=== PATIENT | female | born 1965 | race Caucasian/White ===

== ENCOUNTER → 2018-08-02 | Day surgery (SDC) | payer OTHER ==
[~2018-08-02] MED LIST: ATORVASTATIN CA10 MG PO; FARXIGA; FENTANYL CITRATE/PF 100MCG/2 ML INJ ONE; HYOSCYAMINE SULFATE 0.5 MG/ML INJ ONE; LEVOTHYROXINE50 MCG PO; METFORMIN HCL500 MG PO; MIDAZOLAM HCL 2 MG/2 ML VIAL ONE; OMEPRAZOLE40 MG PO; PROPOFOL IV EMULSION 10 MG/ML 20 ML VIAL ONE; PROPOFOL IV EMULSION 10 MG/ML 50 ML VIAL ONE; SERTRALINE HCL100 MG PO; TYLENOL WITH C1 EACH PO; ZOFRAN4 MG PO
--- OUTSIDE RECORDS SUMMARY | 2018-08-02 07:07 | XMS REPORT | Clinical Summary ---
Author Author [facility] Organization [place] [facility] Address Unknown Phone Unavailable Care Team Providers Care Surgeon Assistant Name Role Phone System, Provider Not In MD PCP Unavailable Allergies Comments Active Allergy Reactions Severity Noted Date Syncope Amoxicillin Rash, Other High 04/08/2017 (See Comments) Medications End Date Status Medication Sig Dispensed Refills Start Date Active metFORMIN (GLUCOPHAGE) Take 500 mg 0 500 mg tablet by mouth 2 (two) times a day with meals. Active Problems Problem Noted Date Unstable angina 05/10/2018 Encounters Care Team Description Date Type Specialty Jabier Catherine MD Roberts, Matthew Thomas, Unstable angina (HCC) (Primary Dx) 05/10/2018 Emergency Emergency Medicine N/A 05/10/2018 Intake Access 05/10/2018 Travel Dino Capone MD Marcantel, Derek L, MD Hypertension, unspecified type (Primary Dx) 04/25/2018 Emergency Emergency Medicine after 08/01/2017 Social History Date Tobacco Use Types Packs/Day Years Used Current Every Day Smoker Cigarettes 1 Smokeless Tobacco: Never Used Alcohol Use Drinks/Week oz/Week Comments No Sex Assigned at Date Recorded Not on file Industry Job Start Date Occupation Not on file Not on file Not on file Travel End Travel History Travel Start No recent travel history available. Last Filed Vital Signs Time Taken Vital Sign Reading 05/10/2018 4:45 PM [facility] Blood Pressure 128/72 05/10/2018 4:45 PM [employer] [facility] Pulse 106 05/10/2018 2:50 PM [employer] [facility] Temperature 36.9 C (98.4 F) 05/10/2018 4:45 PM [employer] [facility] Respiratory Rate 18 05/10/2018 4:45 PM [employer] [facility] Oxygen Saturation 96% - Inhaled Oxygen - Concentration 05/10/2018 2:40 PM [employer] [facility] Weight 99.8 kg (220 lb) 05/10/2018 2:40 PM [employer] [facility] Height 162.6 cm (5' 4") 05/10/2018 2:40 PM [employer] [facility] Body Mass Index 37.76 Plan of Treatment Health Maintenance Due Date Last Done Comments CERVICAL CANCER SCREENING 11/26/1988 BREAST CANCER SCREENING 11/26/2017 COLON CANCER SCREENING 11/26/2017 SHINGLES VACCINES (#1) 11/26/2017 INFLUENZA VACCINE 10/25/2018 Procedures Comments Procedure Name Priority Date/Time Associated Diagnosis CT ABDOMEN PELVIS W STAT 05/10/2018 CONTRAST 4:45 PM [employer] [facility] URINALYSIS SCREEN AND STAT 05/10/2018 MICROSCOPY, WITH REFLEX 3:44 PM [employer] [facility] TO CULTURE URINE CULTURE STAT 05/10/2018 3:44 PM [employer] [facility] XR CHEST 1 VW PORTABLE STAT 05/10/2018 3:34 PM [employer] SE[facility]ER ECG ED PRELIMINARY Routine 05/10/2018 INTERPRETATION 3:32 PM [employer] LIPASE LEVEL Routine 05/10/2018 3:13 PM [employer] [facility] LACTIC ACID LEVEL, SEPSIS STAT 05/10/2018 - NOW AND REPEAT 2X EVERY 3:13 PM [employer] [facility] 3 HOURS ESTIMATED GFR Routine 05/10/2018 3:13 PM [employer]INT SE[employer]ER B NATRIURETIC PEPTIDE Routine 05/10/2018 3:13 PM [employer] [facility] TROPONIN Routine 05/10/2018 3:13 PM [employer] [facility] COMPREHENSIVE METABOLIC Routine 05/10/2018 PANEL 3:13 PM [employer] [facility] PROTHROMBIN TIME WITH INR Routine 05/10/2018 3:13 PM [employer] HC COMPLETE BLD COUNT Routine 05/10/2018 W/AUTO DIFF 3:13 PM [employer] [facility] ECG 12-LEAD STAT 05/10/2018 2:43 PM JOINT SEALER ECG 12-LEAD STAT 04/25/2018 8:15 PM JO[employer] SEALER after 08/01/2017 Results * CT Abdomen Pelvis W Contrast (05/10/2018 4:45 PM JOINT SEALER) Narrative Performed At EXAMINATION:CT ABDOMEN PELVIS W CONTRAST [facility] CLINICAL HISTORY:Abd distension TECHNIQUE: Multiple axial images of the abdomen and pelvis were obtained following intravenous administration of iodinated contrast. Sagittal and coronal computerized reformatted images were also obtained. CT imaging was performed with iterative reconstruction techniques and/or automated exposure control to reduce radiation dose. COMPARISON:None. FINDINGS: 1.The liver, spleen, pancreas, gallbladder, and adrenals are normal. 2.Tiny cortical hypodensities in the lower pole the right kidney, subcentimeter, are probably cysts but difficult to characterize due to small size. Otherwise the kidneys, ureters and urinary bladder are normal. 3.No small or large bowel obstruction or inflammation is seen.The stomach and appendix are within normal limits. 4.A surgical mesh in the anterior abdominal wall is present. There is no abdominal wall hernia. 5.Uterus is absent. 6.No ascites or lymphadenopathy is seen. 7.No vascular abnormality is seen. 8.There is no significant skeletal finding. IMPRESSION: No acute abnormality. [id number] Procedure Note Interface, Radiology Results Incoming - 05/10/2018 4:52 PM JOINT SEALER EXAMINATION: CT ABDOMEN PELVIS W CONTRAST CLINICAL HISTORY: Abd distension TECHNIQUE: Multiple axial images of the abdomen and pelvis were obtained following intravenous administration of iodinated contrast. Sagittal and coronal computerized reformatted images were also obtained. CT imaging was performed with iterative reconstruction techniques and/or automated exposure control to reduce radiation dose. COMPARISON: None. FINDINGS: 1. The liver, spleen, pancreas, gallbladder, and adrenals are normal. 2. Tiny cortical hypodensities in the lower pole the right kidney, subcentimeter, are probably cysts but difficult to characterize due to small size. Otherwise the kidneys, ureters and urinary bladder are normal. 3. No small or large bowel obstruction or inflammation is seen. The stomach and appendix are within normal limits. 4. A surgical mesh in the anterior abdominal wall is present. There is no abdominal wall hernia. 5. Uterus is absent. 6. No ascites or lymphadenopathy is seen. 7. No vascular abnormality is seen. 8. There is no significant skeletal finding. IMPRESSION: No acute abnormality. [id number] Performing Organization Address City/State/Zipcode Phone Number [facility] [address] [place] [address] * Urinalysis screen and microscopy, with reflex to culture (05/10/2018 3:44 PM JOINT SEALER) Specimen site Clean catch [facility] Color, UA Yellow [facility] Appearance, UA Clear [facility] Specific gravity, UA 1.015 1.001 - 1.035 [facility] pH, UA 6.0 5.0 - 8.5 [facility] Protein, UA Negative Negative [facility] Glucose, UA Negative Negative [facility] Ketones, UA Negative Negative [facility] Bilirubin, UA Negative Negative [facility] Blood, UA Negative Negative [facility] Nitrite, UA Negative Negative [facility] Urobilinogen, UA Negative <2.0 [facility] Leukocyte esterase, UA Negative Negative [facility] Epithelial cells, UA Moderate /HPF [facility] WBC, UA 1 0 - 5 /HPF [facility] RBC, UA 1 0 - 5 /HPF [facility] Bacteria, UA None seen None seen [facility] Yeast, UA None seen [facility] Yeast with pseudohyphae, None seen [facility] Specimen Urine Performing Organization Address City/[facility]/Zipcode Phone Number [facility] DEPARTMENT OF [address] [place] [address] PATHOLOGY AND GENOMIC MEDICINE [address] * Urine culture (05/10/2018 3:44 PM JOINT SEALER) Urine culture SEE COMMENTComment: [facility] Bacteriuria screen negative. [facility] Specimen Urine Performing Organization Address City/[facility] Phone Number [facility] DEPARTMENT OF [address] [place] [address] [place] [address] PATHOLOGY AND GENOMIC MEDICINE [address] * XR Chest 1 Vw Portable (05/10/2018 3:34 PM JOINT SEALER) Narrative Performed At SINGLE VIEW CHEST, 05/10/2018 [facility] Clinical History: Chest pain. Technique: Single, portable AP view chest. Comparison: April 08, 2017. Impression: 1.Clear lungs. 2.No pleural effusions. 3.Normal heart size and mediastinal contours for technique. 4.Normal central vasculature. 5.Intact skeleton. 6.No interval change from April 08, 2017. Procedure Note Hm Interface, Radiology Results Incoming - 05/10/2018 3:38 PM JOINT SEALER SINGLE VIEW CHEST, 05/10/2018 Clinical History: Chest pain. Technique: Single, portable AP view chest. Comparison: April 08, 2017. Impression: 1. Clear lungs. 2. No pleural effusions. 3. Normal heart size and mediastinal contours for technique. 4. Normal central vasculature. 5. Intact skeleton. 6. No interval change from April 08, 2017. Performing Organization Address City/[facility]/Zipcode Phone Number [facility] [address] [place] [address] * ECG ED Preliminary Interpretation - Not an Order (05/10/2018 3:32 PM JOINT SEALER) Narrative Performed At Jabier Catherine MD 05/10/20184:55 PM ECG ED Preliminary Interpretation - Not an Order Performed by: Jabier Catherine MD Authorized by: Jabier Catherine MD ECG reviewed by ED Physician in the absence of a medical engineer: yes Previous ECG: Previous ECG:Compared to current Interpretation: Interpretation: normal Rate: ECG rate:107 ECG rate assessment: tachycardic Rhythm: Rhythm: sinus tachycardia Ectopy: Ectopy: none QRS: QRS axis:Normal Conduction: Conduction: normal ST segments: ST segments:Normal T waves: T waves: normal * Estimated GFR (05/10/2018 3:13 PM JOINT SEALER) Estimated GFR 65 mL/min/1.73 m2 [place] [facility] Comment: [facility] CatergoryUnitsInte rpretation G1 >=90 Normal or high G2 60-89Mildly decreased [id number] Mildly to moderately decreased V3f69-37 Moderately to severely decreased G4 15-29Severely decreased G5 <15Kidney failure The eGFR was calculated using the Chronic Kidney Disease Epidemiology Collaboration (CKD-EPI) equation. Interpretation is based on recommendations of the National Kidney Foundation-Kidney Disease Outcomes Quality Initiative (NKF-KDOQI) published in 2014. Specimen Plasma specimen Performing Organization Address City/State/Zipcode Phone Number [facility] DEPARTMENT OF [address] [place] [phone] PATHOLOGY AND GENOMIC MEDICINE [address] * Lactic acid level, SEPSIS - Now and repeat 2x every 3 hours (05/10/2018 3:13 PM JOINT SEALER) Lactic acid 1.3 0.5 - 2.2 mmol/L [facility] Specimen Blood Performing Organization Address City/[facility]/[place] [address] PATHOLOGY AND GENOMIC MEDICINE [address] * Troponin (05/10/2018 3:13 PM JOINT SEALER) Troponin <0.30 0.00 - 0.30 ng/mL [facility] Comment: [facility] 0.11 - 1.49 ng/mlMay indicate increased risk of acute coronary syndrome. >=1.5 ng/ml Consistent with acute myocardial infarction. The diagnostic value of a single normal or non-diagnostic result is questionable.Serial samples at 2-6 hour intervals are required to rule out acute myocardial injury. Specimen Plasma specimen Performing Organization Address [facility] [place] [address] PATHOLOGY AND [facility] MEDICINE [address] * Prothrombin time with INR (05/10/2018 3:13 PM JOINT SEALER) Prothrombin time 13.0 11.5 - 14.5 sec [facility] INR 1.[address] [facility] Comment: [facility] For patients on anticoagulant therapy, reference ranges below: Indication: INR Value Treatment of Venous Thrombosis, 2.0-3.0 pulmonary emboli, or prophylaxis of a venous thrombosis, or systemic emboli. High dose, high risk patients 3.0-4.5 with mechanical valves. NOTE:INR values over 3.0 are sometimes associated with gastrointestinal hemorrhage, especially values over 4.0. Specimen Blood Performing Organization Address City/[facility]/Zipcode Phone Number [facility] DEPARTMENT [place] [phone] PATHOLOGY AND GENOMIC MEDICINE [facility] [address] * CBC with platelet and differential (05/10/2018 3:13 PM JOINT SEALER) WBC 10.2 4.2 - 11.0 k/uL [facility] RBC 4.57 4.04 - 5.86 m/uL [facility] HGB 14.0 11.5 - 15.3 g/dL [facility] HCT 42.9 34.0 - 45.0 % [facility] MCV 93.9 80.0 - 98.0 fL [facility] MCH 30.6 27.0 - 34.0 pg [facility] MCHC 32.6 31.5 - 36.5 g/dL [facility] RDW - SD 43.4 37.0 - 51.0 fL [facility] MPV 10.1 7.4 - 10.4 fL [facility] Platelet count 266 150 - 400 k/uL [facility] Nucleated RBC 0.00 /100 WBC [facility] Neutrophils 48.6 36.0 - 66.0 % [facility] Lymphocytes 37.6 24.0 - 44.0 % [facility] Monocytes 5.9 0.0 - 6.0 % [facility] Eosinophils 6.9 (H) 0.0 - 6.0 % [facility] Basophils 0.7 0.0 - 1.2 % [facility] Immature granulocytes 0.3 0.0 - 1.0 % [facility] Specimen Blood Performing Organization Address City/State/Zipcode Phone Number [facility] DEPARTMENT [facility] [place] [phone] PATHOLOGY AND GENOMIC MEDICINE [facility] [place] [address] * B natriuretic peptide (05/10/2018 3:13 PM JOINT SEALER) BNP 4 0 - 100 pg/mL [facility] Specimen Blood Performing Organization Address [facility] Phone Number [facility] DEPARTMENT OF [address] [place] [address] PATHOLOGY AND GENOMIC MEDICINE [place] [address] * Lipase level (05/10/2018 3:13 PM JOINT SEALER) Lipase 29 13 - 60 U/L [facility] Specimen Plasma specimen Performing Organization Address [facility] Phone Number [facility] DEPARTMENT OF [address] [facility] [place] [phone] PATHOLOGY AND GENOMIC MEDICINE [address] * Comprehensive metabolic panel (05/10/2018 3:13 PM JOINT SEALER) Sodium 142 135 - 150 mEq/L [facility] Potassium 4.1 3.5 - 5.0 mEq/L [facility] Chloride 103 98 - 112 mEq/L [facility] CO2 29 24 - 31 mmol/L [facility] Anion gap 10@ANIO 7 - 15 mEq/L [facility] BUN 14 7 - 18 mg/dL [facility] Creatinine 1.00 (H) 0.50 - 0.90 mg/dL [facility] Glucose 111 (H) 65 - 100 mg/dL [facility] Calcium 9.4 8.3 - 10.2 mg/dL [facility] Protein 6.4 6.3 - 8.3 g/dL [facility] Albumin 3.1 (L) 3.5 - 5.0 g/dL [facility] A/G ratio 0.9 0.7 - 3.8 [facility] Alkaline phosphatase 81 0 - 104 U/L [facility] AST 10 10 - 35 U/L [facility] ALT 11 5 - 50 U/L [facility] Total bilirubin 0.3 0.2 - 1.2 mg/dL [facility] Specimen Plasma specimen Performing Organization Address City/State/Zipcode Phone Number [facility] DEPARTMENT OF [address] [place] [address] PATHOLOGY AND GENOMIC MEDICINE [place]MORE [address] [place] [address] [facility] * ECG 12 lead (05/10/2018 2:43 PM JOINT SEALER) Only the most recent of 2 results within the time period is included. Ventricular rate 107 [facility] Atrial rate 107 [facility] CO interval 158 [facility] QRSD interval 82 [facility] QT interval 344 [facility] QTC interval 459 [facility] P axis 1 45 [facility] QRS axis 1 -19 [facility] T wave axis 53 [facility] EKG impression Sinus tachycardia-Low voltage [facility] QRS-Cannot rule out Anterior infarct (cited on or before 08-APR-2017)-Abnormal ECG-In automated comparison with ECG of 25-APR-2018 20:15,-No significant change was found- Narrative Performed At Performing Organization Address City/State/Zipcode Phone Number [facility] [address] [place] [address] after 08/01/2017 Insurance Payer Benefit Subscriber ID Type Phone Address Plan / Group [facility] MEDICAID [facility] xxxxxxxxx HMO COMM STAR+ JOSE Advance Directives Patient has advance care planning documents on file. For more information, yolie e contact: Sal Velarde [address] [place] [address]
--- OUTSIDE RECORDS SUMMARY | 2018-08-02 07:07 | XMS REPORT ---
Author Author Admin, [place] Organization [facility] Address Unknown Phone Unavailable Allergies, Adverse Reactions, Alerts Allergy Name Reaction Description Start Date Severity Status Provider No Known Allergies Geetha Olmos AMOXICILLIN Pt breaks out in hives Mild Active Cony Escalona MD Conditions or Problems Problem Name Problem Code Onset Date Status Entry Date Provider Comment Standard Description Annotate Dizziness / vertigo 780.4 Active Cony Escalona MD Dizziness and giddiness Colon cancer screening V76.51 Active Cony Escalona MD Screening for malignant neoplasms of colon Diabetes mellitus, type II 250.00 Active Cony Escalona MD Diabetes mellitus without mention of complication, type II or unspecified type, not stated as uncontrolled GERD - reflux, esophageal 530.81 Active Cony Escalona MD Esophageal reflux Hyperlipidemia 272.4 Active Cony Escalona MD Other and unspecified hyperlipidemia Hypertension 401.9 Active Cony Escalona MD Unspecified essential hypertension Hypothyroidism 244.9 Active Cony Escalona MD Unspecified hypothyroidism Knee pain, bilateral 719.46 Active Cony Escalona MD Pain in joint involving lower leg On examination - poor dental hygiene V69.8 Active Cony Escalona MD Other problems related to lifestyle Screening exam for breast cancer V76.10 Active Cony Escalona MD Breast screening, unspecified Medication List Medication Instructions Start Date Stop Date Generic Name NDC Status Provider Patient Instruction MECLIZINE HCL 25 MG ORAL TABLET 1 by mouth 3 times a day as needed MECLIZINE HCL 02045544486 Active Cony Escalona MD Active NAPROXEN 500 MG ORAL TABLET 1 by mouth twice a day as needed for pain and inflammation NAPROXEN 81906846896 Active Cony Escalona MD Active LEVOTHYROXINE SODIUM 175 MCG ORAL TABLET One tab by mouth daily LEVOTHYROXINE SODIUM 63646574628 Active Cathi Garcia CPHT Active LISINOPRIL 10 MG ORAL TABLET 1 by mouth every day LISINOPRIL 03679200149 Active Cony Escalona MD Active METFORMIN HCL 500 MG ORAL TABLET 1 by mouth Twice a Day METFORMIN HCL 70364392600 Active Cathi Garcia CPHT Active PRAVASTATIN SODIUM 40 MG ORAL TABLET 1 By Mouth once a day PRAVASTATIN SODIUM 37189427850 Active Cony Escalona MD Active PROTONIX 40 MG ORAL TABLET DELAYED RELEASE 1 by mouth daily PANTOPRAZOLE SODIUM 82488106179 Active Cony Escalona MD Active ZOLOFT 100 MG ORAL TABLET 1 by mouth nightly at bedtime SERTRALINE HCL 23613762693 Active Cony Escalona MD Active Vital Signs Date Name Value Unit Range Description blood pressure, diastolic 74 mm[Hg] BP winter blood pressure, systolic 121 mm[Hg] BP sys pulse rate E&M 97 /min Heart rate blood pressure, diastolic 77 mm[Hg] BP winter blood pressure, systolic 110 mm[Hg] BP sys pulse rate E&M 76 /min Heart rate blood pressure, diastolic, second observation 75 mm[Hg] BP winter blood pressure, diastolic, third observation 73 mm[Hg] BP winter blood pressure, diastolic, fourth observation 74 mm[Hg] BP winter blood pressure, diastolic 83 mm[Hg] BP winter blood pressure, systolic, second observation 109 mm[Hg] BP sys blood pressure, systolic, third observation 111 mm[Hg] BP sys blood pressure, systolic, fourth observation 114 mm[Hg] BP sys blood pressure, systolic 131 mm[Hg] BP sys height E&M 64 [in_us] Bdy height pulse rate E&M 104 /min Heart rate pulse rate #2 86 Heart rate pulse rate #3 86 Heart rate pulse rate #4 87 /min Heart rate respiratory rate E&M 23 /min Resp rate temperature E&M 98.6 [degF] Body temperature weight E&M 231.40 [lb_av] Weight Measured blood pressure, diastolic 80 mm[Hg] BP winter blood pressure, systolic 135 mm[Hg] BP sys height E&M 64 [in_us] Bdy height pulse rate E&M 101 /min Heart rate respiratory rate E&M 17 /min Resp rate temperature E&M 98.5 [degF] Body temperature weight E&M 230 [lb_av] Weight Measured Diagnostic Results Date Name Value Unit Range Description Lab Report: TSH+Free T4, CBC With Differential/Platelet, Comp. Metabolic ... - Hematology basophils as percent of blood leukocytes 1 % Not Estab. Lab Report: TSH+Free T4, CBC With Differential/Platelet, Comp. Metabolic ... - Chemistry calcium, serum 9.5 mg/dL 8.7-10.2 Lab Report: TSH+Free T4, CBC With Differential/Platelet, Comp. Metabolic ... - Hematology lymphocyte count, blood, automated 3.9 X10E3/UL 10*3/mm3 0.7-3.1 Lab Report: TSH+Free T4, CBC With Differential/Platelet, Comp. Metabolic ... - Chemistry thyroxine, serum, free 0.70 ng/dL 0.82-1.77 urea nitrogen, blood 15 mg/dL 6-24 Lab Report: TSH+Free T4, CBC With Differential/Platelet, Comp. Metabolic ... - Hematology monocyte count, blood, automated 0.6 X10E3/UL 10*3/uL 0.1-0.9 Lab Report: TSH+Free T4, CBC With Differential/Platelet, Comp. Metabolic ... - Chemistry urea nitrogen/creatinine ratio, serum 20 9-23 immature granulocytes, percentage of total cells, blood 0 % Not Estab. Lab Report: TSH+Free T4, CBC With Differential/Platelet, Comp. Metabolic ... - Genetics/fertility eGFR if 110 mL/min/1.73m2 >59 Lab Report: TSH+Free T4, CBC With Differential/Platelet, Comp. Metabolic ... - Chemistry creatinine, serum 0.74 mg/dL 0.57-1.00 Lab Report: TSH+Free T4, CBC With Differential/Platelet, Comp. Metabolic ... - Hematology mean corpuscular volume, RBC 92 fL 79-97 Lab Report: TSH+Free T4, CBC With Differential/Platelet, Comp. Metabolic ... - Chemistry chloride, serum 100 mmol/L 96-106 Lab Report: TSH+Free T4, CBC With Differential/Platelet, Comp. Metabolic ... - Hematology lymphocytes as percent of blood leukocytes 38 % Not Estab. Lab Report: TSH+Free T4, CBC With Differential/Platelet, Comp. Metabolic ... - Chemistry triglyceride, serum, fasting 438 mg/dL 0-149 Lab Report: TSH+Free T4, CBC With Differential/Platelet, Comp. Metabolic ... - Hematology erythrocyte (RBC) count 4.90 X10E6/UL 10*6/mm3 3.77-5.28 Lab Report: TSH+Free T4, CBC With Differential/Platelet, Comp. Metabolic ... - Chemistry Estimated Glomerular Filtration Rate (calc) 95 mL/min/1.73m2 >59 Lab Report: TSH+Free T4, CBC With Differential/Platelet, Comp. Metabolic ... - Hematology platelet count 269 X10E3/UL 10*3/mm3 190-038 3580/03/21 red blood cell distribution width 13.2 % 12.3-15.4 Lab Report: TSH+Free T4, CBC With Differential/Platelet, Comp. Metabolic ... - Chemistry carbon dioxide, venous blood 26 mmol/L 18-29 protein, total, serum 7.2 g/dL 6.0-8.5 HDL cholesterol, serum 34 mg/dL >39 sodium, serum 143 mmol/L 996-350 5037/03/21 hemoglobin A1C, blood, as % of total hemoglobin 6.7 % 4.8-5.6 Lab Report: TSH+Free T4, CBC With Differential/Platelet, Comp. Metabolic ... - Hematology eosinophils as percent of blood leukocytes 10 % Not Estab. Lab Report: TSH+Free T4, CBC With Differential/Platelet, Comp. Metabolic ... - Chemistry albumin/globulin ratio, serum 1.5 1.2-2.2 Absolute Neutrophils 4.8 X10E3/UL 10*3/uL 1.4-7.0 alkaline phosphatase, serum 107 U/L 39-117 Lab Report: TSH+Free T4, CBC With Differential/Platelet, Comp. Metabolic ... - Hematology basophil count, absolute 0.1 x10E3/uL 0.0-0.2 Lab Report: TSH+Free T4, CBC With Differential/Platelet, Comp. Metabolic ... - Chemistry alanine aminotransferase (SGPT), serum 14 U/L 0-32 Lab Report: TSH+Free T4, CBC With Differential/Platelet, Comp. Metabolic ... - Hematology Eosinophil Absolute Count 1.0 X10E3/UL 10*3/uL 0.0-0.4 Lab Report: TSH+Free T4, CBC With Differential/Platelet, Comp. Metabolic ... - Chemistry LDL cholesterol, serum TRIGHI mg/dL mg/dL 0-99 Lab Report: TSH+Free T4, CBC With Differential/Platelet, Comp. Metabolic ... - Hematology monocytes as percent of blood leukocytes 5 % Not Estab. mean corpuscular hemoglobin, RBC 31.2 pg 26.6-33.0 Lab Report: TSH+Free T4, CBC With Differential/Platelet, Comp. Metabolic ... - Chemistry cholesterol, serum 244 mg/dL 100-199 Lab Report: TSH+Free T4, CBC With Differential/Platelet, Comp. Metabolic ... - Hematology mean corpuscular hemoglobin concentration, RBC 33.9 G/DL % 31.5-35.7 Lab Report: TSH+Free T4, CBC With Differential/Platelet, Comp. Metabolic ... - Chemistry bilirubin, serum, total 0.4 mg/dL 0.0-1.2 Lab Report: TSH+Free T4, CBC With Differential/Platelet, Comp. Metabolic ... - Hematology hemoglobin, blood 15.3 g/dL 11.1-15.9 neutrophils as percent of blood leukocytes 46 % Not Estab. leukocyte count, blood 10.3 X10E3/UL 10*3/mm3 3.4-10.8 hematocrit, blood 45.1 % 34.0-46.6 Lab Report: TSH+Free T4, CBC With Differential/Platelet, Comp. Metabolic ... - Chemistry potassium, serum 4.5 mmol/L 3.5-5.2 blood glucose, random 99 mg/dL 65-99 globulin, serum 2.9 1.5-4.5 aspartate aminotransferase (SGOT), serum 14 U/L 0-40 thyroid stimulating hormone, serum 40.090 u[iU]/mL 0.450-4.500 albumin, serum 4.3 g/dL 3.5-5.5 very low density lipoproteins VLDLCH mg/dL mg/dL 5-40 Encounters Date Encounter Provider Code Facility 21:07:27 CDT Est Patient Detailed - [id number] Cony Escalona MD CPT-60524 [facility] 09:52:53 CDT New Patient Detailed - 93473 Cony Escalona MD CPT-26788 [facility]
--- OUTSIDE RECORDS SUMMARY | 2018-08-02 07:07 | XMS REPORT ---
Author [facility] Address Unknown Phone Unavailable Care Team Providers Care Assistant Film Editor Name Role Phone Unavailable Unavailable Payers Payer Name Policy Type Policy Number Effective Date Expiration Date Problems This patient has no known problems. Allergies, Adverse Reactions, Alerts Allergy Name Allergy Type Status Severity Reaction(s) Onset Date Inactive Date Treating Clinician Comments mesalamine DA Active MO 2018-05-10 00:00:00 aspirin DA Active U 2018-05-10 00:00:00 Penicillins DA Active U 2018-04-28 00:00:00 amoxicillin DA Active U 2018-04-28 00:00:00 tramadol DA Active MA 2017-02-19 00:00:00 Medications This patient has no known medications. Results Test Description Test Time Test Comments Text Results Atomic Results Result Comments - XR CHEST 2 V 2018-05-11 11:39:00 FAX: Ina Maciel MD [phone] [place]: St: ADM Name: JANE LINDQUIST [facility] : 1965 Age/S: 52/F [address] [facility] Unit #: [id number] Loc: V.[address] [place] [id number] Phys: Ina Figueroa MD Acct: [id number] Dis Date: Status: ADM IN PHONE #: [phone] Exam Date: 05/11/2018 1118 FAX #: [phone] Reason: chest pain EXAMS: CPT CODE: [id number] XR CHEST 2 V 74058 HISTORY: Chest pain. COMPARISON: None available. AP and lateral view of the chest: No acute infiltrates, effusion or conge stion. Mild scarring. Dependent changes. Cardiac silhouette is at the upper limits of normal. IMPRESSION: No acute infiltrates, effusion or congestion. at 1137 Reported and signed by: Kendrick Kennedy M.D. CC: Ina Figueroa MD Technologist: ANDRES SALCEDO RT (R) Trnscrd Date/Time/By: 05/11/2018 (7541) : By: [email or web address] Orig Print D/T: S: 05/11/2018 (7727) PAGE 1 Signed Report CBC W/MANUAL DIFF 2018-05-11 08:55:00 WHITE BLOOD CELL (test code=WBC) 11.6 K/mm3 4.5-12.5 RED BLOOD CELL (test code=RBC) 4.54 mill/mm3 3.7-5.2 HEMOGLOBIN (test code=HGB) 14.2 gram/dL 11.5-15.5 HEMATOCRIT (test code=HCT) 43.3 % 36.0-46.0 MEAN CELL VOLUME (test code=MCV) 95.4 fL 80-98 MEAN CELL HGB (test code=MCH) 31.3 picogram 27.0-33.0 MEAN CELL HGB CONCETRATION (test code=MCHC) 32.8 gram/dL 33.0-36.0 RED CELL DISTRIBUTION WIDTH (test code=RDW) 13.0 % 11.6-16.2 RED CELL DISTRIBUTION WIDTH SD (test code=RDW-SD) 44.8 fL 37.0-51.0 PLATELET COUNT (test code=PLT) 282 K/mm3 150-450 MEAN PLATELET VOLUME (test code=MPV) 10.0 fL 6.7-11.0 IMMATURE GRANULOCYTE % (test code=IG%) 0.3 % 0.0-5.0 NUCLEATED RBC % (test code=NRBC%) 0.0 % 0-0 NEUTROPHIL # (test code=NT#) 4.17 K/mm3 1.8-7.7 IMMATURE GRANULOCYTE # (test code=IG#) 0.04 x10 3/uL 0-0.03 LYMPHOCYTE # (test code=LY#) 5.91 K/mm3 1.0-5.0 MONOCYTE # (test code=MO#) 0.62 K/mm3 0-0.8 EOSINOPHIL # (test code=EO#) 0.80 K/mm3 0.0-0.5 BASOPHIL # (test code=BA#) 0.08 K/mm3 0.0-0.2 NUCLEATED RBC # (test code=NRBC#) 0.00 K/mm3 0.0-0.1 MANUAL DIFF REQUIRED (test code=MDIFF) YES STAIN ACCEPTABILITY (test code=STN ACCEPTABLE) STAIN ACCEPTABLE TOTAL CELLS COUNTED (test code=TCC) 112 #CELLS SEGMENTED NEUTROPHILS (test code=SEG) 33.9 % 39-69 BAND NEUTROPHIL (test code=BAND) 0 % 0-10 LYMPHOCYTE (test code=LYMPH) 56.2 % 25-55 REACTIVE LYMPH (test code=RELYMPH) 0 % MONOCYTE (test code=MON) 2.7 % 0-10 EOSINOPHIL (test code=EOS) 5.4 % 0.0-5.0 BASOPHIL (test code=BASO) 0.9 % 0-1.0 METAMYELOCYTE (test code=META) 0 % 0-0 MYELOCYTE (test code=MYELO) 0 % 0.0-0.0 PROMYELOCYTE (test code=PROM) 0 % 0-0 PLATELET ESTIMATE (test code=PLTEST) ADEQUATE PLATELET MORPHOLOGY (test code=PLTMORPH) NORMAL IMMATURE FORMS (test code=IMMAT) 0.9 % [id number] 07:57:00* Test Item Value Reference Range Comments TROPONIN-I (test code=TROPI) <0.015 ng/mL 0-0.045 COMMENTS TO EDUCATION SALES CONSULTANT: COLLECT 3 HOURS AFTER PREVIOUS SAMPLEBASIC METABOLIC [id number] 07:47:00* Test Item Value Reference Range Comments SODIUM (test code=NA) 142 mmol/L 136-145 POTASSIUM (test code=K) 3.9 mmol/L 3.5-5.1 CHLORIDE (test code=CL) 106.0 mmol/L 98-107 CARBON DIOXIDE (test code=CO2) 29.0 mmol/L 21-32 ANION GAP (test code=GAP) 10.9 10-20 GLUCOSE (test code=GLU) 115 mg/dL 74-106 BLOOD UREA NITROGEN (test code=BUN) 18 mg/dL 7-18 GLOMERULAR FILTRATION RATE (test code=GFR) > 60 mL/min >=60 Estimated GFR by using Modified MDRD formula.Chronic kidney disease is defined as either kidney damageor GFR <60 mL/min/1.73 m2 for >3 months. CREATININE (test code=CREAT) 0.80 mg/dL 0.55-1.02 Note change in reference range due to change in reagent. BUN/CREATININE RATIO (test code=BUN/CREA) 23.9 10-20 CALCIUM (test code=CA) 8.3 mg/dL 8.5-10.1 CBC W/MANUAL [id number] 07:45:00* Test Item Value Reference Range Comments WHITE BLOOD CELL (test code=WBC) 11.6 K/mm3 4.5-12.5 RED BLOOD CELL (test code=RBC) 4.54 mill/mm3 3.7-5.2 HEMOGLOBIN (test code=HGB) 14.2 gram/dL 11.5-15.5 HEMATOCRIT (test code=HCT) 43.3 % 36.0-46.0 MEAN CELL VOLUME (test code=MCV) 95.4 fL 80-98 MEAN CELL HGB (test code=MCH) 31.3 picogram 27.0-33.0 MEAN CELL HGB CONCETRATION (test code=MCHC) 32.8 gram/dL 33.0-36.0 RED CELL DISTRIBUTION WIDTH (test code=RDW) 13.0 % 11.6-16.2 RED CELL DISTRIBUTION WIDTH SD (test code=RDW-SD) 44.8 fL 37.0-51.0 PLATELET COUNT (test code=PLT) 282 K/mm3 150-450 MEAN PLATELET VOLUME (test code=MPV) 10.0 fL 6.7-11.0 IMMATURE GRANULOCYTE % (test code=IG%) 0.3 % 0.0-5.0 NUCLEATED RBC % (test code=NRBC%) 0.0 % 0-0 NEUTROPHIL # (test code=NT#) 4.17 K/mm3 1.8-7.7 IMMATURE GRANULOCYTE # (test code=IG#) 0.04 x10 3/uL 0-0.03 LYMPHOCYTE # (test code=LY#) 5.91 K/mm3 1.0-5.0 MONOCYTE # (test code=MO#) 0.62 K/mm3 0-0.8 EOSINOPHIL # (test code=EO#) 0.80 K/mm3 0.0-0.5 BASOPHIL # (test code=BA#) 0.08 K/mm3 0.0-0.2 NUCLEATED RBC # (test code=NRBC#) 0.00 K/mm3 0.0-0.1 MANUAL DIFF REQUIRED (test code=MDIFF) YES STAIN ACCEPTABILITY (test code=STN ACCEPTABLE) TOTAL CELLS COUNTED (test code=TCC) #CELLS SEGMENTED NEUTROPHILS (test code=SEG) % 39-69 LYMPHOCYTE (test code=LYMPH) % 25-55 MONOCYTE (test code=MON) % 0-10 EOSINOPHIL (test code=EOS) % 0.0-5.0 CABOT RINGS (test code=CAB) MORPHOLOGY COMMENT (test code=MOC) PLATELET ESTIMATE (test code=PLTEST) PLATELET MORPHOLOGY (test code=PLTMORPH) CBC W/MANUAL [id number] 07:45:00* Test Item Value Reference Range Comments WHITE BLOOD CELL (test code=WBC) 11.6 K/mm3 4.5-12.5 RED BLOOD CELL (test code=RBC) 4.54 mill/mm3 3.7-5.2 HEMOGLOBIN (test code=HGB) 14.2 gram/dL 11.5-15.5 HEMATOCRIT (test code=HCT) 43.3 % 36.0-46.0 MEAN CELL VOLUME (test code=MCV) 95.4 fL 80-98 MEAN CELL HGB (test code=MCH) 31.3 picogram 27.0-33.0 MEAN CELL HGB CONCETRATION (test code=MCHC) 32.8 gram/dL 33.0-36.0 RED CELL DISTRIBUTION WIDTH (test code=RDW) 13.0 % 11.6-16.2 RED CELL DISTRIBUTION WIDTH SD (test code=RDW-SD) 44.8 fL 37.0-51.0 PLATELET COUNT (test code=PLT) 282 K/mm3 150-450 MEAN PLATELET VOLUME (test code=MPV) 10.0 fL 6.7-11.0 IMMATURE GRANULOCYTE % (test code=IG%) 0.3 % 0.0-5.0 NUCLEATED RBC % (test code=NRBC%) 0.0 % 0-0 NEUTROPHIL # (test code=NT#) 4.17 K/mm3 1.8-7.7 IMMATURE GRANULOCYTE # (test code=IG#) 0.04 x10 3/uL 0-0.03 LYMPHOCYTE # (test code=LY#) 5.91 K/mm3 1.0-5.0 MONOCYTE # (test code=MO#) 0.62 K/mm3 0-0.8 EOSINOPHIL # (test code=EO#) 0.80 K/mm3 0.0-0.5 BASOPHIL # (test code=BA#) 0.08 K/mm3 0.0-0.2 NUCLEATED RBC # (test code=NRBC#) 0.00 K/mm3 0.0-0.1 MANUAL DIFF REQUIRED (test code=MDIFF) YES STAIN ACCEPTABILITY (test code=STN ACCEPTABLE) TOTAL CELLS COUNTED (test code=TCC) #CELLS SEGMENTED NEUTROPHILS (test code=SEG) % 39-69 LYMPHOCYTE (test code=LYMPH) % 25-55 MONOCYTE (test code=MON) % 0-10 EOSINOPHIL (test code=EOS) % 0.0-5.0 MORPHOLOGY COMMENT (test code=MOC) PLATELET ESTIMATE (test code=PLTEST) PLATELET MORPHOLOGY (test code=PLTMORPH) CBC W/MANUAL [id number] 07:45:00* Test Item Value Reference Range Comments WHITE BLOOD CELL (test code=WBC) 11.6 K/mm3 4.5-12.5 RED BLOOD CELL (test code=RBC) 4.54 mill/mm3 3.7-5.2 HEMOGLOBIN (test code=HGB) 14.2 gram/dL 11.5-15.5 HEMATOCRIT (test code=HCT) 43.3 % 36.0-46.0 MEAN CELL VOLUME (test code=MCV) 95.4 fL 80-98 MEAN CELL HGB (test code=MCH) 31.3 picogram 27.0-33.0 MEAN CELL HGB CONCETRATION (test code=MCHC) 32.8 gram/dL 33.0-36.0 RED CELL DISTRIBUTION WIDTH (test code=RDW) 13.0 % 11.6-16.2 RED CELL DISTRIBUTION WIDTH SD (test code=RDW-SD) 44.8 fL 37.0-51.0 PLATELET COUNT (test code=PLT) 282 K/mm3 150-450 MEAN PLATELET VOLUME (test code=MPV) 10.0 fL 6.7-11.0 IMMATURE GRANULOCYTE % (test code=IG%) 0.3 % 0.0-5.0 NUCLEATED RBC % (test code=NRBC%) 0.0 % 0-0 NEUTROPHIL # (test code=NT#) 4.17 K/mm3 1.8-7.7 IMMATURE GRANULOCYTE # (test code=IG#) 0.04 x10 3/uL 0-0.03 LYMPHOCYTE # (test code=LY#) 5.91 K/mm3 1.0-5.0 MONOCYTE # (test code=MO#) 0.62 K/mm3 0-0.8 EOSINOPHIL # (test code=EO#) 0.80 K/mm3 0.0-0.5 BASOPHIL # (test code=BA#) 0.08 K/mm3 0.0-0.2 NUCLEATED RBC # (test code=NRBC#) 0.00 K/mm3 0.0-0.1 MANUAL DIFF REQUIRED (test code=MDIFF) YES STAIN ACCEPTABILITY (test code=STN ACCEPTABLE) TOTAL CELLS COUNTED (test code=TCC) #CELLS SEGMENTED NEUTROPHILS (test code=SEG) % 39-69 LYMPHOCYTE (test code=LYMPH) % 25-55 MONOCYTE (test code=MON) % 0-10 MORPHOLOGY COMMENT (test code=MOC) PLATELET ESTIMATE (test code=PLTEST) PLATELET MORPHOLOGY (test code=PLTMORPH) CBC W/MANUAL [id number] 07:44:00* Test Item Value Reference Range Comments WHITE BLOOD CELL (test code=WBC) 11.6 K/mm3 4.5-12.5 RED BLOOD CELL (test code=RBC) 4.54 mill/mm3 3.7-5.2 HEMOGLOBIN (test code=HGB) 14.2 gram/dL 11.5-15.5 HEMATOCRIT (test code=HCT) 43.3 % 36.0-46.0 MEAN CELL VOLUME (test code=MCV) 95.4 fL 80-98 MEAN CELL HGB (test code=MCH) 31.3 picogram 27.0-33.0 MEAN CELL HGB CONCETRATION (test code=MCHC) 32.8 gram/dL 33.0-36.0 RED CELL DISTRIBUTION WIDTH (test code=RDW) 13.0 % 11.6-16.2 RED CELL DISTRIBUTION WIDTH SD (test code=RDW-SD) 44.8 fL 37.0-51.0 PLATELET COUNT (test code=PLT) 282 K/mm3 150-450 MEAN PLATELET VOLUME (test code=MPV) 10.0 fL 6.7-11.0 IMMATURE GRANULOCYTE % (test code=IG%) 0.3 % 0.0-5.0 NUCLEATED RBC % (test code=NRBC%) 0.0 % 0-0 NEUTROPHIL # (test code=NT#) 4.17 K/mm3 1.8-7.7 IMMATURE GRANULOCYTE # (test code=IG#) 0.04 x10 3/uL 0-0.03 LYMPHOCYTE # (test code=LY#) 5.91 K/mm3 1.0-5.0 MONOCYTE # (test code=MO#) 0.62 K/mm3 0-0.8 EOSINOPHIL # (test code=EO#) 0.80 K/mm3 0.0-0.5 BASOPHIL # (test code=BA#) 0.08 K/mm3 0.0-0.2 NUCLEATED RBC # (test code=NRBC#) 0.00 K/mm3 0.0-0.1 MANUAL DIFF REQUIRED (test code=MDIFF) YES STAIN ACCEPTABILITY (test code=STN ACCEPTABLE) TOTAL CELLS COUNTED (test code=TCC) #CELLS SEGMENTED NEUTROPHILS (test code=SEG) % 39-69 LYMPHOCYTE (test code=LYMPH) % 25-55 MONOCYTE (test code=MON) % 0-10 EOSINOPHIL (test code=EOS) % 0.0-5.0 CABOT RINGS (test code=CAB) MORPHOLOGY COMMENT (test code=MOC) PLATELET ESTIMATE (test code=PLTEST) PLATELET MORPHOLOGY (test code=PLTMORPH) CBC W/MANUAL [id number] 07:44:00* Test Item Value Reference Range Comments WHITE BLOOD CELL (test code=WBC) 11.6 K/mm3 4.5-12.5 RED BLOOD CELL (test code=RBC) 4.54 mill/mm3 3.7-5.2 HEMOGLOBIN (test code=HGB) 14.2 gram/dL 11.5-15.5 HEMATOCRIT (test code=HCT) 43.3 % 36.0-46.0 MEAN CELL VOLUME (test code=MCV) 95.4 fL 80-98 MEAN CELL HGB (test code=MCH) 31.3 picogram 27.0-33.0 MEAN CELL HGB CONCETRATION (test code=MCHC) 32.8 gram/dL 33.0-36.0 RED CELL DISTRIBUTION WIDTH (test code=RDW) 13.0 % 11.6-16.2 RED CELL DISTRIBUTION WIDTH SD (test code=RDW-SD) 44.8 fL 37.0-51.0 PLATELET COUNT (test code=PLT) 282 K/mm3 150-450 MEAN PLATELET VOLUME (test code=MPV) 10.0 fL 6.7-11.0 IMMATURE GRANULOCYTE % (test code=IG%) 0.3 % 0.0-5.0 NUCLEATED RBC % (test code=NRBC%) 0.0 % 0-0 NEUTROPHIL # (test code=NT#) 4.17 K/mm3 1.8-7.7 IMMATURE GRANULOCYTE # (test code=IG#) 0.04 x10 3/uL 0-0.03 LYMPHOCYTE # (test code=LY#) 5.91 K/mm3 1.0-5.0 MONOCYTE # (test code=MO#) 0.62 K/mm3 0-0.8 EOSINOPHIL # (test code=EO#) 0.80 K/mm3 0.0-0.5 BASOPHIL # (test code=BA#) 0.08 K/mm3 0.0-0.2 NUCLEATED RBC # (test code=NRBC#) 0.00 K/mm3 0.0-0.1 MANUAL DIFF REQUIRED (test code=MDIFF) YES STAIN ACCEPTABILITY (test code=STN ACCEPTABLE) TOTAL CELLS COUNTED (test code=TCC) #CELLS SEGMENTED NEUTROPHILS (test code=SEG) % 39-69 LYMPHOCYTE (test code=LYMPH) % 25-55 MONOCYTE (test code=MON) % 0-10 EOSINOPHIL (test code=EOS) % 0.0-5.0 CABOT RINGS (test code=CAB) MORPHOLOGY COMMENT (test code=MOC) PLATELET ESTIMATE (test code=PLTEST) PLATELET MORPHOLOGY (test code=PLTMORPH) BASIC METABOLIC [id number] 07:33:00* Test Item Value Reference Range Comments SODIUM (test code=NA) 142 mmol/L 136-145 POTASSIUM (test code=K) 3.9 mmol/L 3.5-5.1 CHLORIDE (test code=CL) 106.0 mmol/L 98-107 CARBON DIOXIDE (test code=CO2) mmol/L 21-32 ANION GAP (test code=GAP) 10-20 GLUCOSE (test code=GLU) mg/dL 74-106 BLOOD UREA NITROGEN (test code=BUN) mg/dL 7-18 GLOMERULAR FILTRATION RATE (test code=GFR) mL/min >=60 CREATININE (test code=CREAT) mg/dL 0.55-1.02 BUN/CREATININE RATIO (test code=BUN/CREA) 10-20 CALCIUM (test code=CA) mg/dL 8.5-10.1 [id number] 03:20:00* Test Item Value Reference Range Comments TROPONIN-I (test code=TROPI) <0.015 ng/mL 0-0.045 COMMENTS TO EDUCATION SALES CONSULTANT: COLLECT 3 HOURS AFTER PREVIOUS SAMPLETHYROID PROFILE [id number] 21:42:00* Test Item Value Reference Range Comments T3 UPTAKE (test code=T3UP) 26.0 % 30.0-40.0 T4 (THYROXINE) (test code=T4) 6.2 ug/dL 4.5-13.9 T7 (FREE THYROXINE INDEX) (test code=T7) 1.61 FTI 1.3-5.1 THYROID STIMULATING HORMONE (test code=TSH) 26.000 uIU/mL 0.36-3.74 TSH REFERENCE RANGES: EUTHYROID: 0.35 - 4.3 mIU/mL HYPO : > 5.5 mIU/mL HYPER : < 0.35 mIU/mL HCG SERUM [id number] 20:18:00* Test Item Value Reference Range Comments HCG SERUM QUAL (test code=HCGQL) NEGATIVE NEGATIVE This HCGQL test is NOT applicable for MALE patients.Check with nurse about probable order error.If Tumor Marker Test needed, nurse should order test "HCGTU"(Test #550.46401) [id number] 20:18:00* Test Item Value Reference Range Comments CKMB (test code=CKMBT) < 1.0 ng/mL 0-6.0 [id number] 20:18:00* Test Item Value Reference Range Comments TROPONIN-I (test code=TROPI) <0.015 ng/mL 0-0.045 B-TYPE NATRIURETIC [id number] 20:18:00* Test Item Value Reference Range Comments B-TYPE NATRIURETIC PEPTIDE (test code=BNP) 3.99 pgram/mL 0-100 HCG SERUM [id number] 20:05:00* Test Item Value Reference Range Comments HCG SERUM QUAL (test code=HCGQL) NEGATIVE NEGATIVE This HCGQL test is NOT applicable for MALE patients.Check with nurse about probable order error.If Tumor Marker Test needed, nurse should order test "HCGTU"(Test #550.83588) [id number] 20:05:00* Test Item Value Reference Range Comments CKMB (test code=CKMBT) ng/mL 0-6.0 [id number] 20:05:00* Test Item Value Reference Range Comments TROPONIN-I (test code=TROPI) ng/mL 0-0.045 [id number] 22:13:00* Test Item Value Reference Range Comments GLUBED (test code=GLUBED) 102 mg/dL 74-106 Performed by certified fish cutting machine operator at [facility] [id number] 16:14:00* Test Item Value Reference Range Comments GLUBED (test code=GLUBED) 98 mg/dL 74-106 Performed by certified fish cutting machine operator at [facility]
[2018-08-02 11:40] VITALS: BP 109/80
--- NOTE | 2018-08-02 18:04 | Operative Report ---
DATE OF PROCEDURE: 08/02/2018 SURGEON: Jaycob Figueroa MD PROCEDURE: Esophagogastroduodenoscopy with biopsies and esophageal dilatation and colonoscopy with polypectomy. INDICATIONS FOR EGD: Dysphagia, nausea, heartburn. INDICATIONS FOR COLONOSCOPY: Colorectal cancer screening. MEDICATIONS: The patient was done under MAC, please see anesthesiologist's note. PROCEDURE IN DETAIL: With the patient in left lateral decubitus position, a flexible fiberoptic Olympus gastroscope was introduced into the esophagus under direct visualization without any difficulty. There was some patchy erythema noted in distal esophagus. A minute nodule was noted about approximately 30 cm from the incisors and was biopsied. A minute tongue of velvety red mucosa was noted to extend proximally from the GE junction and that was biopsied to rule out Shirley's. The scope was then advanced with ease into the stomach and mucosa overlying the antrum and the body revealed some patchy erythema, low-grade to moderate edema and biopsies were obtained and sent to stain for H pylori. The pylorus was of normal contour and shape, was intubated with ease and the scope was advanced all the way to the second portion of the duodenum. Biopsies were obtained from the proximal second portion and the duodenal bulb to rule out sprue. The scope was then withdrawn back into the stomach and retroflexed and mucosa overlying the fundus and the cardia appeared to be within normal limits. The scope was then straightened out, it was subsequently withdrawn. The esophagus was then dilated to size 50-Citizen [place]. The patient tolerated procedure well. IMPRESSION: 1. Distal esophagitis, mild. 2. Esophageal nodule at 30 cm from incisors, biopsied. 3. Rule out Shirley esophagus. 4. Esophageal stricture, dilated to size 50-Citizen [place]. 5. Gastritis, biopsied, biopsies sent to stain for H pylori. 6. Rule out sprue. PLAN: Follow up histology. Initiate Protonix 40 mg one p.o. q.a.m. a.c. PROCEDURE IN DETAIL: The patient was then turned around. After adequate lubrication of the anal canal, a flexible fiberoptic Olympus colonoscope was inserted into the rectum with ease and advanced all the way to the cecum. It was then withdrawn slowly and mucosa overlying the cecum and ascending colon appeared to be within normal limits. Two polyps were snared from the transverse colon. One polyp was snared from the descending colon. One polyp was hot biopsied from the sigmoid and two polyps were hot biopsied from the rectum. The scope was then retroflexed into the distal rectum and small internal hemorrhoids were noted, none of which was actively bleeding. The scope was then straightened out, it was subsequently withdrawn. The patient tolerated procedure well. IMPRESSION: 1. Transverse colon polyps x2, snared. 2. Descending colon polyp x1, snared. 3. Sigmoid colon polyp x1, hot biopsied. 4. Rectal polyps x2, hot biopsied. 5. Internal hemorrhoids, none actively bleeding. PLAN: Follow up histology. Initiate high-fiber, low-fat diet. Initiate high-fiber supplement. The patient might benefit from a followup colonoscopy in 3 years. Jaycob Figueroa MD [facility] [place] [place][id number] cc: Emre Figueroa MD
== END | disposition home or self-care (01) ==
LOC: OR 07:05
PROVIDERS: ATTEND Internal Medicine Gastroenterology
DX: K22.2 Esophageal obstruction (principal); D12.3 Benign neoplasm of transverse colon; D12.4 Benign neoplasm of descending colon; K62.1 Rectal polyp; K29.70 Gastritis, unspecified, without bleeding; K21.9 Gastro-esophageal reflux disease without esophagitis; K20.9 Esophagitis, unspecified; K22.8 Other specified diseases of esophagus; K64.8 Other hemorrhoids; R19.7 Diarrhea, unspecified; K46.9 Unspecified abdominal hernia without obstruction or gangrene; E11.9 Type 2 diabetes mellitus without complications; E03.9 Hypothyroidism, unspecified; F32.9 Major depressive disorder, single episode, unspecified; F41.9 Anxiety disorder, unspecified; F17.210 Nicotine dependence, cigarettes, uncomplicated; Z88.6 Allergy status to analgesic agent; Z88.0 Allergy status to penicillin; Z88.1 Allergy status to other antibiotic agents; Z01.810 Encounter for preprocedural cardiovascular examination; Z68.37 Body mass index [BMI] 37.0-37.9, adult
CPT/HCPCS: 36415; 43239; 43450; 45384; 45385; 82948; 93005; J1980; J2250; J2704 ×2; 45378